=== PATIENT | male | born 1980 | race Caucasian/White ===

== ENCOUNTER 2020-10-25 08:22 | Inpatient (IN) | payer MEDICARE, MEDICAID ==
[~2020-10-25] VITALS: Ht 188 cm; Wt 98.0 kg
[2020-10-25 09:01] LABS: ANION GAP 10 mmol/L (8-16); CALCIUM, TOTAL 9.1 mg/dL (8.8-10.5); CARBON DIOXIDE 28 mmol/L (22-29); CHLORIDE 103 mmol/L (98-107); CREATININE 0.98 mg/dL (0.60-1.30); GLOMERULAR FILTR. RATE CALC > 60 mL/min (>60); GLUCOSE,RANDOM 111 mg/dL (70-110); POTASSIUM 3.7 mmol/L (3.5-5.1); SODIUM SERUM 141 mmol/L (136-145); UREA NITROGEN, BLOOD 13 mg/dL (7-18)
[2020-10-25 09:04] LABS: COVID AG,FIA SOURCE NASOPHARYNGEAL
[2020-10-25 09:07] LABS: ALANINE AMINOTRANSFERASE 104 U/L (12-78); ALBUMIN 3.9 g/dL (3.4-5.0); ALKALINE PHOSPHATASE 58 U/L (46-116); ASPARTATE AMINOTRANSFERASE 102 U/L (15-37); BILIRUBIN,TOTAL 0.6 mg/dL (0.1-1.0); TOTAL PROTEIN, SERUM 7.4 g/dL (6.4-8.2)
[2020-10-25] MEDS ORDERED: LORazepam 2 MG/ML VIAL ONE (09:21)
[2020-10-25] MEDS ORDERED: HALOPERIDOL LACTATE 5 MG/ML VIAL ONE (09:21)
[2020-10-25] MEDS ORDERED: DiphenhydrAMINE HCL 50 MG/ML VIAL ONE (09:21)
[2020-10-25] MEDS ORDERED: LORazepam 2 MG/ML VIAL IM ONE (09:30)
[2020-10-25] MEDS ORDERED: DiphenhydrAMINE HCL 50 MG/ML VIAL IM ONE (09:30)
[2020-10-25] MEDS ORDERED: HALOPERIDOL LACTATE 5 MG/ML VIAL IM ONE (09:30)
[2020-10-25 09:37] LABS: AMPHET/METH SCREEN,URINE NEGATIVE (NEGATIVE); BARBITURATE SCREEN, URINE NEGATIVE (NEGATIVE); BENZODIAZEPINES SCREEN,URINE NEGATIVE (NEGATIVE); CANNABINOID SCREEN,URINE NEGATIVE (NEGATIVE); COCAINE SCREEN,URINE NEGATIVE (NEGATIVE); METHADONE SCREEN, URINE NEGATIVE (NEGATIVE); OPIATE SCREEN,URINE NEGATIVE (NEGATIVE); PHENCYCLIDINE SCREEN,URINE NEGATIVE (NEGATIVE)
[2020-10-25] MEDS ORDERED: PROMETHAZINE HCL 25 MG TABLET PO PRN (09:45)
[2020-10-25] MEDS ORDERED: MAGNESIUM HYDROXIDE SUSPENSION 30 ML UDCUP PO PRN (09:45)
[2020-10-25] MEDS ORDERED: ZOLPIDEM TARTRATE 10 MG TABLET PO PRN (09:45)
[2020-10-25] MEDS ORDERED: MAG HYDROX/AL HYDROX/SIMETH ES 30 ML SUSPENSION UDCUP PO PRN (09:45)
[2020-10-25] MEDS ORDERED: LOPERAMIDE HCL 2 MG CAPSULE PO PRN (09:45)
[2020-10-25] MEDS ORDERED: TUBERCULIN, PURIFIED PROTEIN DERIVATIVE 5 TU/0.1 ML SYRINGE ID ONE (09:45)
[2020-10-25] MEDS ORDERED: PALIPERIDONE PALMITATE 234 MG/1.5 ML SYRINGE IM ONE (09:45)
[2020-10-25] MEDS ORDERED: GuaiFENesin/D-METHORPHAN [SUGAR-FREE] 200-20MG/10 ML SYRUP UDCUP PO PRN (09:45)
[2020-10-25 10:08] LABS: BASOPHILS % (AUTO) 0.3 % (0.0-2.0); EOSINOPHILS % (AUTO) 0.5 % (1.0-6.0); HEMATOCRIT 43.7 % (41-53); HEMOGLOBIN 15.2 g/dL (13.5-17.5); LYMPHOCYTES # (AUTO) 1.5 K/uL (1.0-4.8); LYMPHOCYTES % (AUTO) 19.5 % (22.0-44.0); MEAN CORPUSCULAR HEMOGLOBIN 30.8 pg (26.0-34.0); MEAN CORPUSCULAR HGB CONC 34.7 G/dL (31.0-37.0); MEAN CORPUSCULAR VOLUME 89 fL (80-100); MONOCYTES # (AUTO) 0.5 K/uL (0.1-1.0); MONOCYTES % (AUTO) 6.8 % (2.0-9.0); NEUTROPHILS # (AUTO) 5.5 K/uL (1.8-7.7); NEUTROPHILS % (AUTO) 72.9 % (40.0-70.0); PLATELET COUNT (AUTO) 316 K/uL (150-450); RED BLOOD CELL COUNT(AUTO) 4.92 MIL/uL (4.50-5.90); RED CELL DISTRIBUTION WIDTH 13.7 % (11.5-14.5)
[2020-10-25 13:42] VITALS: BP 148/84
[2020-10-25] MEDS ORDERED: PNEUMOCOCCAL VACCINE POLYVALENT 0.5 ML VIAL [PPSV23] IM ONE (13:45)
[2020-10-25] MEDS ORDERED: INFLUENZA VIRUS VACCINE QVS 2020-21 (6MO+)/PF 60 MCG/0.5 ML SYRINGE IM ONE (13:45)
[2020-10-25] MEDS ORDERED: CloNIDine HCL 0.1 MG TABLET PO PRN (16:15)
[2020-10-25 16:36] VITALS: BP 119/73
[2020-10-25] MEDS: THIAMINE 100 MG TABLET PO SCH (18:45)
[2020-10-25] MEDS: PALIPERIDONE 3 MG ER TABLET PO SCH (20:26)
[2020-10-25] MEDS: MELATONIN 5 MG TABLET PO SCH (20:26)
[2020-10-26 07:52] LABS: ALANINE AMINOTRANSFERASE 96 U/L (12-78); ALBUMIN 3.6 g/dL (3.4-5.0); ALKALINE PHOSPHATASE 51 U/L (46-116); ANION GAP 9 mmol/L (8-16); ASPARTATE AMINOTRANSFERASE 101 U/L (15-37); BILIRUBIN,TOTAL 0.7 mg/dL (0.1-1.0); CARBON DIOXIDE 28 mmol/L (22-29); CHLORIDE 101 mmol/L (98-107); CHOL/HDL RATIO 2.8 (4.2-7.3); CHOLESTEROL 154 mg/dL (131-200); CREATININE 0.87 mg/dL (0.60-1.30); FREE T4 (FREE THYROXINE) 1.52 ng/dL (0.76-1.46); GLOMERULAR FILTR. RATE CALC > 60 mL/min (>60); GLUCOSE,RANDOM 110 mg/dL (70-110); HDL CHOLESTEROL 55 mg/dL (40-60); LDL CHOL (CALC.) 82 mg/dL (0-130); SODIUM SERUM 138 mmol/L (136-145); THYROID STIMULATING HORMONE 1.01 uIU/mL (0.36-3.74); TOTAL PROTEIN, SERUM 7.1 g/dL (6.4-8.2); TRIGLYCERIDES 87 mg/dL (15-150); UREA NITROGEN, BLOOD 9 mg/dL (7-18)
[2020-10-26] MEDS: MULTIVITAMINS WITH MINERALS, THERAPEUTIC TABLET PO SCH (08:25)
[2020-10-26] MEDS: THIAMINE 100 MG TABLET PO SCH ×2 (08:25→16:48)
[2020-10-26] MEDS: FOLIC ACID 1 MG TABLET PO SCH (08:25)
[2020-10-26] MEDS: NALTREXONE HCL 50 MG TABLET PO SCH (08:25)
[2020-10-26 08:29] VITALS: BP 132/85
[2020-10-26] MEDS: OMEGA-3/DHA/EPA/FISH OIL 1,000 MG CAPSULE PO SCH (11:36)
[2020-10-26 16:00] VITALS: BP 153/98
[2020-10-26] MEDS: PALIPERIDONE 3 MG ER TABLET PO SCH ×2 (20:40→20:52)
[2020-10-26] MEDS: MELATONIN 5 MG TABLET PO SCH (20:40)
[2020-10-27] MEDS: PALIPERIDONE 1.5 MG ER TABLET PO PRN ×2 (01:11→08:28)
[2020-10-27] MEDS: LORazepam 2 MG TABLET PO PRN ×3 (02:52→18:48)
[2020-10-27 08:00] VITALS: BP 130/75
[2020-10-27] MEDS: NALTREXONE HCL 50 MG TABLET PO SCH (08:26)
[2020-10-27] MEDS: FOLIC ACID 1 MG TABLET PO SCH (08:28)
[2020-10-27] MEDS: MULTIVITAMINS WITH MINERALS, THERAPEUTIC TABLET PO SCH (08:28)
[2020-10-27] MEDS: THIAMINE 100 MG TABLET PO SCH ×2 (08:28→16:20)
[2020-10-27] MEDS: OMEGA-3/DHA/EPA/FISH OIL 1,000 MG CAPSULE PO SCH (08:28)
[2020-10-27] MEDS: HydrOXYzine PAMOATE 50 MG CAPSULE PO PRN (08:29)
[2020-10-27] MEDS: ACETAMINOPHEN 325 MG TABLET PO PRN (11:25)
[2020-10-27 16:02] VITALS: BP 125/72
[2020-10-27] MEDS: DIVALPROEX SODIUM 500 MG ER TABLET PO SCH (20:27)
[2020-10-27] MEDS: MELATONIN 5 MG TABLET PO SCH (20:32)
[2020-10-28] MEDS: LORazepam 2 MG TABLET PO PRN ×3 (06:41→12:47)
[2020-10-28] MEDS: HydrOXYzine PAMOATE 50 MG CAPSULE PO PRN (07:39)
[2020-10-28] MEDS: OMEGA-3/DHA/EPA/FISH OIL 1,000 MG CAPSULE PO SCH (07:39)
[2020-10-28] MEDS: FOLIC ACID 1 MG TABLET PO SCH (07:39)
[2020-10-28] MEDS: PALIPERIDONE 1.5 MG ER TABLET PO PRN ×2 (07:39→12:47)
[2020-10-28] MEDS: THIAMINE 100 MG TABLET PO SCH ×2 (07:39→16:15)
[2020-10-28] MEDS: MULTIVITAMINS WITH MINERALS, THERAPEUTIC TABLET PO SCH (07:39)
[2020-10-28] MEDS: NALTREXONE HCL 50 MG TABLET PO SCH (07:39)
[2020-10-28 08:00] VITALS: BP 124/75
[2020-10-28 08:52] LABS: ALANINE AMINOTRANSFERASE 78 U/L (12-78); ALBUMIN 3.5 g/dL (3.4-5.0); ALKALINE PHOSPHATASE 52 U/L (46-116); ANION GAP 8 mmol/L (8-16); ASPARTATE AMINOTRANSFERASE 48 U/L (15-37); BILIRUBIN,TOTAL 0.3 mg/dL (0.1-1.0); CALCIUM, TOTAL 9.3 mg/dL (8.8-10.5); CARBON DIOXIDE 28 mmol/L (22-29); CHLORIDE 101 mmol/L (98-107); CREATININE 0.87 mg/dL (0.60-1.30); GLOMERULAR FILTR. RATE CALC > 60 mL/min (>60); GLUCOSE,RANDOM 123 mg/dL (70-110); POTASSIUM 4.5 mmol/L (3.5-5.1); SODIUM SERUM 137 mmol/L (136-145); TOTAL PROTEIN, SERUM 6.9 g/dL (6.4-8.2); UREA NITROGEN, BLOOD 10 mg/dL (7-18)
[2020-10-28 16:14] VITALS: BP 96/78
[2020-10-28] MEDS: MELATONIN 5 MG TABLET PO SCH (22:08)
[2020-10-28] MEDS: DIVALPROEX SODIUM 500 MG ER TABLET PO SCH (22:08)
[2020-10-29 07:14] LABS: PROTHROMBIN TIME 10.9 SEC (9.4-11.6)
[2020-10-29 08:00] VITALS: BP 126/81
[2020-10-29] MEDS: NALTREXONE HCL 50 MG TABLET PO SCH (08:07)
[2020-10-29] MEDS: OMEGA-3/DHA/EPA/FISH OIL 1,000 MG CAPSULE PO SCH (08:07)
[2020-10-29] MEDS: THIAMINE 100 MG TABLET PO SCH ×2 (08:07→16:10)
[2020-10-29] MEDS: MULTIVITAMINS WITH MINERALS, THERAPEUTIC TABLET PO SCH (08:07)
[2020-10-29] MEDS: FOLIC ACID 1 MG TABLET PO SCH (08:07)
[2020-10-29] MEDS ORDERED: PALIPERIDONE PALMITATE 156 MG/ML SYRINGE IM ONE (09:00)
[2020-10-29] MEDS: LORazepam 2 MG TABLET PO PRN (18:26)
[2020-10-29] MEDS ORDERED: LORazepam 2 MG/ML VIAL ONE (18:55)
[2020-10-29] MEDS ORDERED: DiphenhydrAMINE HCL 50 MG/ML VIAL ONE (18:56)
[2020-10-29] MEDS ORDERED: HALOPERIDOL LACTATE 5 MG/ML VIAL ONE (18:56)
[2020-10-29] MEDS ORDERED: LORazepam 2 MG/ML VIAL IM ONE (19:15)
[2020-10-29] MEDS ORDERED: HALOPERIDOL LACTATE 5 MG/ML VIAL IM ONE (19:15)
[2020-10-29] MEDS ORDERED: DiphenhydrAMINE HCL 50 MG/ML VIAL IM ONE (19:15)
[2020-10-29] MEDS: DIVALPROEX SODIUM 500 MG ER TABLET PO SCH (21:16)
[2020-10-29] MEDS: MELATONIN 5 MG TABLET PO SCH (21:17)
[2020-10-30] MEDS: FOLIC ACID 1 MG TABLET PO SCH (07:57)
[2020-10-30] MEDS: OMEGA-3/DHA/EPA/FISH OIL 1,000 MG CAPSULE PO SCH (07:57)
[2020-10-30] MEDS: MULTIVITAMINS WITH MINERALS, THERAPEUTIC TABLET PO SCH (07:57)
[2020-10-30] MEDS: THIAMINE 100 MG TABLET PO SCH ×2 (07:57→16:50)
[2020-10-30] MEDS: NALTREXONE HCL 50 MG TABLET PO SCH (08:00)
[2020-10-30 16:21] VITALS: BP 131/80
[2020-10-30] MEDS: DIVALPROEX SODIUM 500 MG ER TABLET PO SCH (20:33)
[2020-10-30] MEDS: MELATONIN 5 MG TABLET PO SCH (21:00)
[2020-10-30] MEDS: ACETAMINOPHEN 325 MG TABLET PO PRN (22:09)
[2020-10-31] MEDS: LORazepam 2 MG TABLET PO PRN ×3 (03:13→16:04)
[2020-10-31 08:27] VITALS: BP 134/86
[2020-10-31] MEDS: FOLIC ACID 1 MG TABLET PO SCH (08:38)
[2020-10-31] MEDS: MULTIVITAMINS WITH MINERALS, THERAPEUTIC TABLET PO SCH (08:38)
[2020-10-31] MEDS: ACETAMINOPHEN 325 MG TABLET PO PRN ×2 (08:38→16:06)
[2020-10-31] MEDS: PALIPERIDONE 1.5 MG ER TABLET PO PRN (08:38)
[2020-10-31] MEDS: THIAMINE 100 MG TABLET PO SCH ×2 (08:38→16:04)
[2020-10-31] MEDS: NALTREXONE HCL 50 MG TABLET PO SCH (08:38)
[2020-10-31] MEDS: OMEGA-3/DHA/EPA/FISH OIL 1,000 MG CAPSULE PO SCH (08:38)
[2020-10-31 16:03] VITALS: BP 119/70
[2020-10-31 17:16] LABS: COVID AG,FIA SOURCE NASOPHARYNGEAL
[2020-10-31] MEDS: MELATONIN 5 MG TABLET PO SCH (20:23)
[2020-10-31] MEDS: PALIPERIDONE 3 MG ER TABLET PO SCH (20:23)
[2020-10-31] MEDS: DIVALPROEX SODIUM 500 MG ER TABLET PO SCH (20:23)
[2020-11-01] MEDS: ACETAMINOPHEN 325 MG TABLET PO PRN ×2 (02:16→09:17)
[2020-11-01 02:19] VITALS: BP 115/69
[2020-11-01] MEDS: THIAMINE 100 MG TABLET PO SCH ×2 (08:03→15:57)
[2020-11-01] MEDS: OMEGA-3/DHA/EPA/FISH OIL 1,000 MG CAPSULE PO SCH (08:03)
[2020-11-01] MEDS: FOLIC ACID 1 MG TABLET PO SCH (08:03)
[2020-11-01] MEDS: NALTREXONE HCL 50 MG TABLET PO SCH (08:03)
[2020-11-01] MEDS: MULTIVITAMINS WITH MINERALS, THERAPEUTIC TABLET PO SCH (08:03)
[2020-11-01] MEDS: LORazepam 2 MG TABLET PO PRN ×2 (08:05→15:56)
[2020-11-01 08:07] VITALS: BP 115/73
[2020-11-01 16:30] VITALS: BP 124/65
[2020-11-01] MEDS: PALIPERIDONE 3 MG ER TABLET PO SCH (20:24)
[2020-11-01] MEDS: MELATONIN 5 MG TABLET PO SCH (20:25)
[2020-11-01] MEDS: DIVALPROEX SODIUM 500 MG ER TABLET PO SCH (20:28)
[2020-11-02] MEDS: ACETAMINOPHEN 325 MG TABLET PO PRN ×3 (05:15→16:31)
[2020-11-02] MEDS: OMEGA-3/DHA/EPA/FISH OIL 1,000 MG CAPSULE PO SCH (08:38)
[2020-11-02] MEDS: THIAMINE 100 MG TABLET PO SCH ×2 (08:38→16:18)
[2020-11-02] MEDS: FOLIC ACID 1 MG TABLET PO SCH (08:38)
[2020-11-02] MEDS: LORazepam 2 MG TABLET PO PRN ×2 (08:38→17:44)
[2020-11-02] MEDS: MULTIVITAMINS WITH MINERALS, THERAPEUTIC TABLET PO SCH (08:38)
[2020-11-02] MEDS: NALTREXONE HCL 50 MG TABLET PO SCH (08:38)
[2020-11-02 08:45] VITALS: BP 117/72
[2020-11-02 16:18] VITALS: BP 128/85
[2020-11-02] MEDS: PALIPERIDONE 3 MG ER TABLET PO SCH (20:29)
[2020-11-02] MEDS: MELATONIN 5 MG TABLET PO SCH (20:30)
[2020-11-02] MEDS: DIVALPROEX SODIUM 500 MG ER TABLET PO SCH (20:30)
[2020-11-03] MEDS: ACETAMINOPHEN 325 MG TABLET PO PRN ×3 (03:11→16:29)
[2020-11-03 08:00] VITALS: BP 138/83
[2020-11-03] MEDS: FOLIC ACID 1 MG TABLET PO SCH (08:40)
[2020-11-03] MEDS: NALTREXONE HCL 50 MG TABLET PO SCH (08:40)
[2020-11-03] MEDS: THIAMINE 100 MG TABLET PO SCH ×2 (08:40→16:26)
[2020-11-03] MEDS: OMEGA-3/DHA/EPA/FISH OIL 1,000 MG CAPSULE PO SCH (08:40)
[2020-11-03] MEDS: MULTIVITAMINS WITH MINERALS, THERAPEUTIC TABLET PO SCH (08:40)
[2020-11-03] MEDS: LORazepam 2 MG TABLET PO PRN ×2 (08:43→16:41)
[2020-11-03 16:25] VITALS: BP 128/72
[2020-11-03] MEDS: PALIPERIDONE 3 MG ER TABLET PO SCH (20:08)
[2020-11-03] MEDS: DIVALPROEX SODIUM 500 MG ER TABLET PO SCH (20:08)
[2020-11-03] MEDS: MELATONIN 5 MG TABLET PO SCH (20:08)
[2020-11-04] MEDS: ACETAMINOPHEN 325 MG TABLET PO PRN ×3 (01:57→18:04)
[2020-11-04] MEDS: LORazepam 2 MG TABLET PO PRN ×3 (01:57→18:03)
[2020-11-04 02:02] VITALS: BP 121/79
[2020-11-04 08:30] VITALS: BP 118/67
[2020-11-04] MEDS: NALTREXONE HCL 50 MG TABLET PO SCH (08:31)
[2020-11-04] MEDS: PALIPERIDONE 1.5 MG ER TABLET PO PRN (08:31)
[2020-11-04] MEDS: OMEGA-3/DHA/EPA/FISH OIL 1,000 MG CAPSULE PO SCH (08:31)
[2020-11-04] MEDS: FOLIC ACID 1 MG TABLET PO SCH (08:31)
[2020-11-04] MEDS: MULTIVITAMINS WITH MINERALS, THERAPEUTIC TABLET PO SCH (08:34)
[2020-11-04 16:27] VITALS: BP 130/78
[2020-11-04 18:00] VITALS: BP 139/89
[2020-11-04] MEDS: PALIPERIDONE 3 MG ER TABLET PO SCH (21:31)
[2020-11-04] MEDS: MELATONIN 5 MG TABLET PO SCH (21:31)
[2020-11-04] MEDS: DIVALPROEX SODIUM 500 MG ER TABLET PO SCH (21:32)
[2020-11-05 01:46] VITALS: BP 125/86
[2020-11-05 08:52] VITALS: BP 124/70
[2020-11-05] MEDS: MULTIVITAMINS WITH MINERALS, THERAPEUTIC TABLET PO SCH (09:05)
[2020-11-05] MEDS: OMEGA-3/DHA/EPA/FISH OIL 1,000 MG CAPSULE PO SCH (09:05)
[2020-11-05] MEDS: NALTREXONE HCL 50 MG TABLET PO SCH (09:05)
[2020-11-05] MEDS: ACETAMINOPHEN 325 MG TABLET PO PRN ×2 (09:07→17:32)
[2020-11-05 09:09] VITALS: BP 122/69
[2020-11-05 10:10] VITALS: BP 144/104
[2020-11-05] MEDS: LORazepam 2 MG TABLET PO PRN ×2 (12:50→17:32)
[2020-11-05 16:24] VITALS: BP 128/88
[2020-11-05] MEDS ORDERED: TEMAZEPAM 15 MG CAPSULE PO PRN (18:00)
[2020-11-05] MEDS: PALIPERIDONE 3 MG ER TABLET PO SCH (21:17)
[2020-11-05] MEDS: MELATONIN 5 MG TABLET PO SCH (21:17)
[2020-11-05] MEDS: DIVALPROEX SODIUM 500 MG ER TABLET PO SCH (21:17)
[2020-11-06 03:40] VITALS: BP 146/65
[2020-11-06] MEDS: ACETAMINOPHEN 325 MG TABLET PO PRN ×2 (03:41→13:08)
[2020-11-06] MEDS: MULTIVITAMINS WITH MINERALS, THERAPEUTIC TABLET PO SCH (08:22)
[2020-11-06] MEDS: NALTREXONE HCL 50 MG TABLET PO SCH (08:22)
[2020-11-06] MEDS: OMEGA-3/DHA/EPA/FISH OIL 1,000 MG CAPSULE PO SCH (08:22)
[2020-11-06 09:50] VITALS: BP 118/79
[2020-11-06 12:39] LABS: COVID AG,FIA SOURCE NASOPHARYNGEAL
[2020-11-06 13:14] VITALS: BP 138/92
[2020-11-06 14:15] VITALS: BP 147/93
[2020-11-06 16:00] VITALS: BP 123/78
[2020-11-06] MEDS: DIVALPROEX SODIUM 500 MG ER TABLET PO SCH (20:04)
[2020-11-06] MEDS: MELATONIN 5 MG TABLET PO SCH (20:05)
[2020-11-06] MEDS: PALIPERIDONE 3 MG ER TABLET PO SCH (20:05)
[2020-11-07] MEDS: LORazepam 2 MG TABLET PO PRN ×2 (08:08→15:43)
[2020-11-07] MEDS: MULTIVITAMINS WITH MINERALS, THERAPEUTIC TABLET PO SCH (08:08)
[2020-11-07] MEDS: NALTREXONE HCL 50 MG TABLET PO SCH (08:08)
[2020-11-07] MEDS: ACETAMINOPHEN 325 MG TABLET PO PRN ×2 (08:09→15:44)
[2020-11-07] MEDS: OMEGA-3/DHA/EPA/FISH OIL 1,000 MG CAPSULE PO SCH (08:49)
[2020-11-07 09:15] VITALS: BP 132/89
[2020-11-07 16:38] VITALS: BP 124/79
== END 2020-11-07 19:30 | disposition left against medical advice (07) | DRG 885 ==
LOC: EMS 08:44 → 3EC 11:56 → 3EI 11-03 14:50 → 3EX 11-03 16:15
PROVIDERS: ADMIT Psychiatry & Neurology Psychiatry; ATTEND Psychiatry & Neurology Psychiatry
DX: F25.9 Schizoaffective disorder, unspecified (principal); I10 Essential (primary) hypertension; F41.9 Anxiety disorder, unspecified; J45.909 Unspecified asthma, uncomplicated; R73.9 Hyperglycemia, unspecified; Z20.822 Contact with and (suspected) exposure to COVID-19; F12.90 Cannabis use, unspecified, uncomplicated; Z55.9 Problems related to education and literacy, unspecified; Z65.3 Problems related to other legal circumstances; Z91.14 Patient's other noncompliance with medication regimen; Z79.899 Other long term (current) drug therapy
CPT/HCPCS: 70460; 70486; 72100; 80074; 83036; 84439; 84443; 86592; 87426; 99291; A9575; G0378; G0480; J1200; J1630; J2060